=== PATIENT | female | born 1980 | race Caucasian/White ===

== ENCOUNTER → 2017-01-24 | Outpatient (CLI) | payer BC ==
--- NOTE | ~2017-01-24 | CT4 ---
[facility] A Service of [facility] & [facility] [place] RADIOLOGY TEXT RESULTS PATIENT: YURI SALOMON LOCATION: [facility] : 82 UNIT #: [id number] AGE: [address]: LIN WILKINSON APRN SEX: F ORDER DR: [id number] [address] [address] [id number] O MR#: [id number] Acc #: [id number] NAME: YURI SALOMON : 1980 SEX: F STUDY DATE/TIME: 01/24/2017 18:19 UNIT: [facility] ROOM: STUDY DESCRIPTION: CT Abd and Pelv Wo Cont Attending Physician: Lin Wilkinson Aprn Referring Physician: Lin Wilkinson Aprn Ordering Physician: Lin Wilkinson Aprn Primary Care Physician: Lin Wilkinson Aprn MEDICAL IMAGING REPORT This report is preliminary unless electronic signature is present. EXAM Abdomen and pelvis CT without contrast 01/24/2017 HISTORY Abdominal pain toward the right side for the past 6 days accompanied by leukocytosis. TECHNIQUE Axial images were obtained without contrast. This CT exam was performed with one or more of the following radiation dose reduction techniques: automatic exposure control, adjustment of mA and/or kV according to patient size, and iterative reconstruction. FINDINGS There is mild chronic-appearing atelectasis at the right lung base posteromedially. In the abdomen clips are seen from a cholecystectomy. Diffuse fatty infiltration of the liver is noted. The spleen and pancreas are unremarkable. The left kidney and adrenal are normal. On the right side there is hydronephrosis to a moderate degree. The ureter is dilated and there is mild perinephric and periureteral edema. The ureter is dilated down to the level of the mid pelvis. In this area there are several bowel loops somewhat pulled together. The appendix is not well visualized and the right ovary is in this area as well and appears somewhat prominent. There is also a calcification seen that is linear measuring about 3 x 6 mm. This probably represents an obstructing stone at the level of the mid pelvis. The cecum and the appendix actually sit just to the left of midline and the appendix is air-filled and nondilated. No free fluid is seen in the pelvic cul-de-sac. No distended small bowel loops are seen. There is no evidence of adenopathy. [facility] A Service of [facility] RADIOLOGY TEXT RESULTS PATIENT: YURI SALOMON LOCATION: [facility] : 82 UNIT #: [id number] AGE: [address]: LIN WILKINSON APRN SEX: F ORDER DR: IMPRESSION Moderate right hydronephrosis with perinephric edema. The ureter is dilated to the mid pelvis where a 3 x 6 mm calcification is seen probably representing obstructing stone in the right ureter. This area is somewhat difficult to visualize because of a prominent right ovary in this area as well as the ascending colon. The appendix sits just to the left of midline and is unremarkable. No free fluid is seen in the pelvis and there is no evidence of an abscess. The left kidney is unremarkable. Also noted is hepatic steatosis. STAT * RESULT Dictated by... Uday Cunningham M.D. THIS IS AN ELECTRONICALLY VERIFIED REPORT Uday Cunningham M.D. at 01/25/2017 10:02 AM Echo TD: 01/24/2017 18:43 JOB #: [id number] MEDICAL IMAGING REPORT Page 1 of 1
== END | disposition home or self-care (01) ==
LOC: SCT 16:50
DX: D72.829 Elevated white blood cell count, unspecified (principal); N13.30 Unspecified hydronephrosis; N28.82 Megaloureter; R10.9 Unspecified abdominal pain
CPT/HCPCS: 74176